=== PATIENT | female | born 2000 | race Two or more races ===

== ENCOUNTER 2022-03-30 18:46 | Emergency (ER) | payer MEDICAID ==
[~2022-03-30] VITALS: Ht 172.7 cm; Wt 96.2 kg
--- NOTE | 2022-03-30 19:00 | NUR ---
RECEIVED PT 21 yrs female came from home by [place] c/o vaginale bleeding for 3 month and rectale pain for 1 day
--- NOTE | 2022-03-30 19:22 | NUR ---
HAND OFF SANJEEV VALENCIA
--- NOTE | 2022-03-30 19:28 | NUR ---
RECEIVED REPORT FROM ERIK SALAMANCA. PATIENT CAME WITH CC OF VAGINAL BLEEDING AND BURNING IN ANAL AREA. PATIENT IS AAOX4. ABLE TO MAKE NEEDS KNOWN. PER PATIENT, SHE CHANGED 6X HER TAMPONS AND SHE HAD THIS VAGINAL BLEEDING SINCE JANUARY. PATIENT IS ATTACHED TO MONITOR. VITALS CHECKED.
--- NOTE | 2022-03-30 19:30 | NUR ---
SEEN BY DR CONLEY AT BEDSIDE.
--- NOTE | 2022-03-30 19:49 | NUR ---
RACHANA DWYER AT BEDSIDE
--- NOTE | 2022-03-30 20:07 | NUR ---
FAMILY ENGAGEMENT SPECIALIST AT BEDSIDE
[2022-03-30 20:41] LABS: BASOPHILS % (AUTO) 0.2 % (0.0-2.0); EOSINOPHILS % (AUTO) 0.2 % (0.0-6.0); HEMATOCRIT 27 % (33-45); LYMPHOCYTES # (AUTO) 2.5 K/uL (0.8-4.8); LYMPHOCYTES % (AUTO) 16.1 % (20.0-44.0); MEAN CORPUSCULAR HGB CONC 29 g/dl (31.0-36.0); MEAN CORPUSCULAR VOLUME 61 fL (82-100); MONOCYTES # (AUTO) 0.8 K/uL (0.1-1.30); MONOCYTES % (AUTO) 5.1 % (2.0-12.0); NEUTROPHILS # (AUTO) 12.1 K/uL (1.8-8.9); NEUTROPHILS % (AUTO) 78.4 % (43.0-81.0); PLATELET COUNT (AUTO) 626 K/uL (150-450); RED BLOOD CELL COUNT(AUTO) 4.53 MIL/uL (4.0-5.2); WHITE BLOOD COUNT (AUTO) 15.4 K/uL (4.3-11.0)
[2022-03-30] MEDS ORDERED: FLUCONAZOLE (100 MG) 100 MG TABLET PO ONE (21:00)
[2022-03-30] MEDS ORDERED: FLUCONAZOLE (100 MG) 100 MG TABLET ONE (21:06)
[2022-03-30 21:34] LABS: BILIRUBIN,DIRECT 0.1 mg/dL (0.0-0.2); BILIRUBIN,TOTAL 0.3 mg/dL (0.2-1.0); CALCIUM, SERUM 9.4 mg/dL (8.5-10.1); CREATININE 0.9 mg/dL (0.6-1.3); POTASSIUM 3.6 mmol/L (3.5-5.1); TOTAL PROTEIN, SERUM 8.9 g/dL (6.4-8.2)
[2022-03-30 21:41] LABS: BILIRUBIN,URINE NEGATIVE (NEGATIVE); COLOR,URINE YELLOW (YELLOW); LEUKOCYTE ESTERASE ,URINE 1+ (NEGATIVE); NITRITE, URINE NEGATIVE (NEGATIVE); PH,URINE 7.5 (5.0-8.0); PROTEIN,URINE 1+ mg/dl (NEGATIVE); UGLUCOSE NEGATIVE (NEGATIVE); UROBILINOGEN,URINE 0.2 EU/dL (0.2)
[2022-03-30] MEDS ORDERED: [UNRECOGNIZED DRUG - CODE] PO (21:50)
[2022-03-30] MEDS ORDERED: DESO1TAB PO (21:50)
[2022-03-30 22:28] LABS: RBC,URINE 51-80 /HPF (0-2)
[2022-03-30 22:29] LABS: BACTERIA,URINE 2+ /HPF (None Seen); MUCUS,URINE Few /LPF (None Seen)
[2022-03-30 22:32] LABS: BAND % (MANUAL) 1 % (0.0-5.0); LYMPHOCYTES % (MANUAL) 15 % (16-48); MONOCYTES % (MANUAL) 4 % (0-11.0); NEUTROPHILS % (MANUAL) 80 (42-76)
[2022-03-30] MEDS ORDERED: NITR100C6 PO (22:45)
[2022-03-30 22:59] VITALS: BP 116/70
--- NOTE | 2022-03-30 22:59 | NUR ---
Patient discharged to home in stable condition. Written and verbal after care instructions given. Patient verbalizes understanding of instruction.
== END 2022-03-31 00:04 | disposition home or self-care (01) ==
LOC: ER 19:10
DX: N93.8 Other specified abnormal uterine and vaginal bleeding (principal); B37.49 Other urogenital candidiasis; D64.9 Anemia, unspecified; Z79.899 Other long term (current) drug therapy
CPT/HCPCS: 36415; 76856-TC; 80048-TC; 80076-TC; 81001; 82962-TC; 84702-TC; 85025-TC; 87086-TC